=== PATIENT | male | born 1980 | race Caucasian/White ===

== ENCOUNTER 2024-02-19 13:17 | Emergency (ER) | payer MEDICAID ==
[~2024-02-19] VITALS: Ht 185.4 cm; Wt 81.4 kg
[2024-02-19 13:35] VITALS: BP 126/70; PULSE 91; O2SAT 96
[2024-02-19 14:26] VITALS: RESP 18; TEMP 98.7
== END 2024-02-19 14:50 | disposition home or self-care (01) ==
LOC: ER 13:18
DX: B34.9 Viral infection, unspecified (principal); Z20.822 Contact with and (suspected) exposure to COVID-19; M79.10 Myalgia, unspecified site; R53.83 Other fatigue
CPT/HCPCS: 36415; 87811; 99283